=== PATIENT | female | born 1970 | race Caucasian/White ===

== ENCOUNTER → 2017-01-12 | Outpatient (CLI) | payer BC ==
[~2017-01-12] MED LIST: ASPIRIN PO; CERTAGEN PO; FISH OIL 1,0001 CAP PO; LOTREL 10/20 MG1 CAP PO; PERIOSTAT PO; PRAVACHOL PO
--- NOTE | ~2017-01-12 | ST ---
Unit #: [id number] #: [id number] Patient: TOMI KUMARI [id number] [address] [address] [id number] O MR#: [id number] NAME: TOMI KUMARI. : 1970 SEX: F STUDY DATE/TIME: 01/12/2017 UNIT: CN ROOM: STUDY DESCRIPTION: Imaging study Attending Physician: Jak Rodriguez M.D. Referring Physician: Jak Rodriguez M.D. Primary Care Physician: Jak Rodriguez M.D. CARDIOLOGY REPORT EXAM Nuclear portion of the Lexiscan stress test INDICATION Chest pain. FINDINGS Resting dose was 11 mCi. Stress dose was 35.8 mCi. End-diastolic volume was 105 mL. End-systolic volume was 46 mL. Calculated EF of 56%. Raw images showed no significantly abnormal extracardiac uptake. It showed large breast shadows anteriorly. Gated images showed no significant wall motion abnormality with calculated EF of 56%. Perfusion images showed anterior wall reversible defect that is most likely breast tissue attenuation but anterior wall ischemia cannot be excluded. IMPRESSION 1. Normal wall motion with calculated ejection fraction of 56%. 2. Anterior wall reversible defect breast tissue attenuation versus anterior wall ischemia cannot be excluded. Further investigation is recommended. Dictated by.Rajinder. Monico Tapia M.D. BA/yovany TD: 01/13/2017 14:13 JOB #: [id number] Unit #: [id number] #: [id number] Patient: TOMI KUMARI CARDIOLOGY REPORT Page 1 of 1 X CARDIOLOGY REPORT
--- NOTE | ~2017-01-12 | ST ---
Unit #: [id number] #: [id number] Patient: TOMI KUMARI [id number] [address] [address] [id number] O MR#: [id number] NAME: TOMI KUMARI : 1970 SEX: F STUDY DATE/TIME: 01/12/2017 UNIT: [facility] ROOM: STUDY DESCRIPTION: EKG portion of Lexiscan Attending Physician: Jak Rodriguez M.D. Referring Physician: Jak Rodriguez M.D. Primary Care Physician: Jak Rodriguez M.D. CARDIOLOGY REPORT EXAM EKG portion of Lexiscan. REASON FOR EXAMINATION Palpitations. DESCRIPTION Baseline EKG is sinus tachycardia with a rate of 110 BPM. A total of 0.4 Lexiscan was injected per protocol, followed by Cardiolite. The patient did not have any symptoms or denied any ST-T wave changes or arrhythmias. The test was stopped due to protocol completion. IMPRESSION 1. There were no ST-T wave changes. 2. Patient was asymptomatic. 3. There were no arrhythmias. 4. Please correlate with Cardiolite imaging. Dictated by... Shena Holloway A.P.R.N. AM/alonzo TD: 01/12/2017 09:46 JOB #: [id number] CARDIOLOGY REPORT Page 1 of 1 X Shena Holloway APRN CARDIOLOGY REPORT
--- NOTE | ~2017-01-12 | ST ---
Unit #: [id number] #: [id number] Patient: TOMI KUMARI [id number] [address] [address] [id number] O MR#: [id number] NAME: TOMI KUMARI : 1970 SEX: F STUDY DATE/TIME: 01/12/2017 UNIT: [facility] ROOM: STUDY DESCRIPTION: Attending Physician: Jak Rodriguez M.D. Referring Physician: Jak Rodriguez M.D. Primary Care Physician: Jak Rodriguez M.D. CARDIOLOGY REPORT EXAM EKG portion of Lexiscan stress test. INDICATIONS Chest pain. FINDINGS Resting blood pressure was 167/98. Post infusion blood pressure was 152/91. Resting heart rate was 106. Post infusion heart rate was 110. Resting EKG showed sinus tachycardia with heart rate of [address] segment changes to suggest acute ischemia. EKG showed poor R-wave progression. Post infusion EKG showed no significant changes from baseline. IMPRESSION 1. Abnormal EKG for poor R-wave progression. 2. No acute ischemic changes on the Lexiscan EKG portion of the stress test. Dictated by... Lima Brito TD: 01/13/2017 08:35 JOB #: [id number] CARDIOLOGY REPORT Page 1 of 1 X CARDIOLOGY REPORT
== END | disposition home or self-care (01) ==
LOC: CNUC 07:35
DX: R07.89 Other chest pain (principal); I10 Essential (primary) hypertension; R94.31 Abnormal electrocardiogram [ECG] [EKG]; Z82.49 Family history of ischemic heart disease and other diseases of the circulatory system
CPT/HCPCS: 78452; 93017; A9500; J2785